=== PATIENT | male | born 1990 | race African-American/Black ===

== ENCOUNTER 2022-12-07 10:39 | Emergency (ER) | payer MEDICAID, OTHER ==
[~2022-12-07] VITALS: Ht 170.2 cm; Wt 63.7 kg
[2022-12-07 11:02] VITALS: BP 144/94; PULSE 95; RESP 18; TEMP 98.7; O2SAT 99
[2022-12-07] MEDS ORDERED: NEOMYCIN-BACITRACIN-POLYM UNITDOSE PKG TOP OINT TOP ONE (15:45)
== END 2022-12-07 15:59 | disposition home or self-care (01) ==
LOC: ER 10:39
DX: S61.211D Laceration without foreign body of left index finger without damage to nail, subsequent encounter (principal); X58.XXXD Exposure to other specified factors, subsequent encounter